=== PATIENT | female | born 1960 ===

== ENCOUNTER 2020-06-16 10:51 | Day surgery (SDC) | payer MEDICARE, MEDICAID ==
[~2020-06-16] VITALS: Ht 157.5 cm; Wt 87.3 kg
[2020-06-16 11:14] VITALS: BP 122/71
[2020-06-16] MEDS ORDERED: LISI40TA PO (11:22)
[2020-06-16] MEDS ORDERED: AMLO5TAB4 PO (11:22)
[2020-06-16] MEDS ORDERED: CHLORHEXIDINE 15 ML UDC MM ONE (11:30)
[2020-06-16] MEDS ORDERED: SODIUM CHLORIDE 0.9% 1,000 ML IV SCH (11:30)
[2020-06-16] MEDS ORDERED: PLEASE ENTER HEIGHT AND WEIGHT MC SCH (11:30)
[2020-06-16] MEDS ORDERED: PLEASE ENTER ALLERGIES MC SCH (11:30)
[2020-06-16] MEDS ORDERED: ACETAMINOPHEN 500 MG TABLET PO ONE (11:30)
[2020-06-16] MEDS ORDERED: CHOL10003 PO (11:46)
[2020-06-16] MEDS ORDERED: INSU100C5 SQ-INSULIN (11:46)
[2020-06-16] MEDS ORDERED: FENTANYL PF 100 MCG/2ML ONE ×3 (11:52→16:31)
[2020-06-16 11:54] LABS: BASOPHILS % (AUTO) 1 % (0-1); EOSINOPHILS % (AUTO) 1 % (1-7); LYMPHOCYTES % (AUTO) 27 % (22-44); MEAN CORPUSCULAR HEMOGLOBIN 31.6 pg (27.0-34.8); MEAN CORPUSCULAR HGB CONC 33.3 g/dL (32.4-35.8); MEAN PLATELET VOLUME 8.8 fL (7.4-10.4); MONOCYTES % (AUTO) 7 % (2-9); NEUTROPHILS % (AUTO) 66 % (42-75); PLATELET COUNT 152 x10^3/uL (130-400); RED BLOOD COUNT 3.55 x10^6/uL (3.82-5.3); RED CELL DISTRIBUTION WIDTH 14.8 % (9.6-15.2)
[2020-06-16 11:58] LABS: MD NO
[2020-06-16] MEDS ORDERED: OXYcodone 5 MG/5 ML ORAL.SOL UDC PO PRN (12:00)
[2020-06-16] MEDS ORDERED: EPHEDRINE 50 MG/ML, 1ML IVPush PRN (12:00)
[2020-06-16] MEDS ORDERED: PROMETHAZINE 25 MG/ML, 1ML IVPush PRN (12:00)
[2020-06-16] MEDS ORDERED: ONDANSETRON 2MG/ML, 2ML IVPush PRN (12:00)
[2020-06-16] MEDS ORDERED: HYDROmorphone 1 MG/ML, 1ML INJ IVPush PRN (12:00)
[2020-06-16] MEDS ORDERED: hydrALAzine 20 MG/ML, 1ML IV PRN (12:00)
[2020-06-16] MEDS ORDERED: FENTANYL PF 100 MCG/2ML IV PRN (12:00)
[2020-06-16] MEDS ORDERED: LABETALOL 5MG/ML, 20ML IV PRN (12:00)
[2020-06-16 12:08] LABS: ALANINE AMINOTRANSFERASE 18 U/L (12-78); ALBUMIN 3.7 g/dL (3.4-5.0); ANION GAP 12 mmol/L (5-15); CALCIUM 9.1 mg/dL (8.5-10.1); CHLORIDE 100 mmol/L (98-107)
[2020-06-16 12:11] LABS: ALKALINE PHOSPHATASE 108 U/L (45-117); BILIRUBIN,TOTAL 0.7 mg/dL (0.2-1.0); CREATININE 6.73 mg/dL (0.55-1.02); TOTAL PROTEIN 8.3 g/dL (6.4-8.2)
[2020-06-16] MEDS ORDERED: PROTAMINE SULFATE 10 MG/ML, 5ML ONE (14:01)
[2020-06-16] MEDS ORDERED: PAPAVERINE 30 MG/ML, 2ML ONE (14:01)
[2020-06-16] MEDS ORDERED: BUPIVACAINE/PF 0.5% ONE (14:01)
[2020-06-16] MEDS ORDERED: THROMBIN 20,000 UNIT VIAL TP ONE (14:02)
[2020-06-16] MEDS ORDERED: HEPARIN 1,000 UNITS/ML, 10ML ONE (14:02)
[2020-06-16] MEDS ORDERED: EPINEPHRINE 1 MG/ML, 1ML ONE (14:02)
[2020-06-16] MEDS ORDERED: CEFAZOLIN 1,000 MG ONE (14:35)
[2020-06-16] MEDS ORDERED: ONDANSETRON 2MG/ML, 2ML ONE (14:35)
[2020-06-16] MEDS ORDERED: PROPOFOL 10 MG/ML, 20ML ONE (14:35)
[2020-06-16] MEDS ORDERED: LIDOCAINE-MPF 2% ,5ML ONE (14:36)
[2020-06-16] MEDS ORDERED: SODIUM CHLORIDE 0.9% PF 10ML ONE (14:36)
[2020-06-16] MEDS ORDERED: DEXAMETHASONE 4 MG/ML, 5ML ONE (14:36)
[2020-06-16] MEDS ORDERED: PHENYLEPHRINE 10 MG/ML ONE (14:42)
[2020-06-16] MEDS ORDERED: BUPIVACAINE/PF-EPI 0.5% 1:200K INFIL ONE (14:52)
[2020-06-16] MEDS ORDERED: OXYcodone 5 MG/5 ML ORAL.SOL UDC ONE (16:31)
== END 2020-06-16 18:30 | disposition home or self-care (01) ==
LOC: OUT 10:51
PROVIDERS: ATTEND Surgery
DX: E11.22 Type 2 diabetes mellitus with diabetic chronic kidney disease (principal); I12.9 Hypertensive chronic kidney disease with stage 1 through stage 4 chronic kidney disease, or unspecified chronic kidney disease; N18.30 Chronic kidney disease, stage 3 unspecified; N17.9 Acute kidney failure, unspecified; E66.9 Obesity, unspecified; Z68.33 Body mass index [BMI] 33.0-33.9, adult; Z20.822 Contact with and (suspected) exposure to COVID-19; Z79.899 Other long term (current) drug therapy; Z90.49 Acquired absence of other specified parts of digestive tract
CPT/HCPCS: 36818; 71045; 80053; 82962; 85025; 87635; 93005; J0171; J0690; J1100; J1644; J2370; J2405; J2704; J2720; J3010; J7030; J2440